=== PATIENT | male | born 2000 | race Caucasian/White ===

== ENCOUNTER 2024-04-30 07:22 | Inpatient (IN) | payer BC, MEDICAID ==
[~2024-04-30] VITALS: Ht 172.7 cm; Wt 79.2 kg
--- NOTE | 2024-04-30 08:02 | ED.PDOC ---
GI ASSESSMENT HPI Comments 24 year old male presents to the ED with chief complaint of abdominal pain. Patient reports that he has been experiencing LUQ abdominal pain with associated nausea and vomiting for a week. Patient relays that he has noticed his stools have been yellow lately. Patient states he went to and was advised to come to the ED due to concern for pancreatitis or cholecystitis. Patient notes that he has an appointment with his PCP in 2 weeks. Patient reports that he has more pain with walking and after eating fatty foods, noticed less pain when on a no fat diet. Patient denies any diarrhea, chest pain, fever, chills, dysuria, or hematemesis. Chief Complaint: Abdominal Pain Time Seen by MD: 07:57 Primary Care Provider: NONE Reviewed Notes: Nurses Notes, Medications, Allergies Allergies: Coded Allergies: NO KNOWN ALLERGIES (Unverified , 04/30/24) Information Source: Patient Mode of Arrival: Ambulatory Timing: Weeks Duration: Since onset Prehospital treatment: None Quality: Sharp Vomitus: Watery Stool: Normal, Yellow Severity: Moderate Recent: None Recent Hx of: None Pain Location: LUQ Modifying Factors: Nothing Associated sign and symptoms: Nausea, Vomiting, Abdominal Pain Past Medical History PAST MEDICAL HISTORY: Denies Surgical History: Denies all surgeries Family History Family History: Reviewed,noncontributory to illness Social History Smoker: Non-Smoker Alcohol: Occasionally Drugs: Denies Drug Use Lives In: Home Constitutional: denies: chills, diaphoresis, fatigue, fever, malaise, sweats, weakness, others EENTM: denies: blurred vision, double vision, ear bleeding, ear discharge, ear drainage, ear pain, ear ringing, eye pain, eye redness, hearing loss, mouth pain, mouth swelling, nasal discharge, nose bleeding, nose congestion, nose pain, photophobia, tearing, throat pain, throat swelling, voice changes, others Respiratory: denies: cough, hemoptysis, orthopnea, SOB at rest, shortness of breath, SOB with excertion, stridor, wheezing, others Cardiovascular: denies: chest pain, dizzy spells, diaphoresis, Dyspnea on exertion, edema, irregular heart beat, left arm pain, lightheadedness, palpitations, PND, syncope, others Gastrointestinal: reports: abdominal pain, nausea, vomiting; denies: abdomen distended, blood streaked bowels, constipated, diarrhea, dysphagia, difficulty swallowing, hematemesis, melena, poor appetite, poor fluid intake, rectal bleeding, rectal pain, others Genitourinary: denies: burning, dysuria, flank pain, frequency, hematuria, incontinence, penile discharge, penile sore, pain, testicle pain, testicle swelling, urgency, others Neurological: denies: dizziness, fainting, headache, left sided numbness, left sided weakness, numbness, paresthesia, pre-existing deficit, right sided numbness, right sided weakness, seizure, speech problems, tingling, tremors, weakness, others Musculoskeletal: denies: back pain, gout, joint pain, joint swelling, muscle pain, muscle stiffness, neck pain, others Integumetry: denies: bruises, change in color, change in hair/nails, dryness, laceration, lesions, lumps, rash, wounds, others Allergic/Immunocompromised: denies: Difficulty Healing, Frequent Infections, Hi ves, Itching, others Hematologic/Lymphatic: denies: anemia, blood clots, easy bleeding, easy bruising, swollen glands, others Endocrine: denies: excessive hunger, excessive sweating, excessive thirst, excessive urination, flushing, intolerance to cold, intolerance to heat, unexplained weight gain, unexplained weight loss, others Psychiatric: denies: anxiety, bipolar disorder, depression, hopeless, panic disorder, schizophrenia, sleepless, suicidal, others All Other Systems: Reviewed and Negative Physical Exam General Appearance: Moderate Distress, Normal HEENT: Normal ENT Inspection, PERRL/EOMI Neck: Full Range of Motion, Non-Tender, Normal, Normal Inspection Respiratory: Chest Non-Tender, Lungs Clear, No Accessory Muscle Use, No Respiratory Distress, Normal Breath Sounds Cardiovascular: No Edema, No JVD, No Murmur, No Gallop, Normal Peripheral Pulses, Regular Rate/Rhythm Breast Exam: Deferred Gastrointestinal: Diffuse, No Organomegaly, No Pulsatile Mass, Normal Bowel Sounds, Soft Genitalia: Deferred Pelvic: Deferred Rectal: Deferred Extremities: No calf tenderness, Normal capillary refill, Normal inspection, Normal range of motion, Non-tender, No pedal edema Musculoskeletal : Apperance: Normal Neurologic: Alert, produce team lead II-XII nml as Tested, No Motor Deficits, Normal Affect, Normal Mood, No Sensory Deficits Cerebellar Function: Normal Reflexes: Normal Skin: Dry, Normal Color, Warm Peripheral Pulses: 3+ Radial (R), 3+ Radial (L) Lymphatic: No Adenopathy Was a procedure done? Was a procedure done?: No GI differential Dx Differential Diagnosis: Constipation, Diverticular disease, Esophagitis, Gastritis/PUD, Gastroenteritis X-Ray, Labs, Meds, VS Vital Signs Date Time Temp Pulse Resp B/P (MAP) Pulse Ox O2 Delivery O2 Flow Rate FiO2 04/30/24 12:15 98.1 97 17 135/77 (96) 99 98.1 04/30/24 11:23 83 18 130/81 (97) 97 04/30/24 10:34 Room Air* 0 21 04/30/24 07:40 99.1 77 20 146/97 (113) 97 Lab Test 04/30/24 10:15 04/30/24 10:14 Range/Units Urine Color Light-yellow Yellow Urine Clarity Clear Clear Urine pH 8.0 5.0-9.0 Urine Specific [place] 1.035 1.001-1.035 Urine Protein Negative Negative Urine Ketones Negative Negative Urine Blood Negative Negative /uL Urine Nitrite Negative Negative Urine Bilirubin Negative Negative Urine Urobilinogen Normal Negative mg/dL Urine Leukocyte Esterase Negative Negative /uL Urine RBC <1 0 - 3 /hpf Urine WBC None seen 0 - 3 /hpf Urine Squamous Epithelial Cells Few <5 /hpf Urine Bacteria None seen None Seen /hpf Urine Mucus Few None Seen Urine Glucose Normal Normal mg/dL White Blood Count 6.5 4.4-10.8 10^3/uL Red Blood Count 5.57 4.5-5.90 10^6/uL Hemoglobin 17.0 13.5-17.5 g/dL Hematocrit 49.9 41.0-53.0 % Mean Corpuscular Volume 89.6 80.0-100.0 fL Mean Corpuscular Hemoglobin 30.5 28.0-32.0 pg Mean Corpuscular Hemoglobin Concent 34.1 32.0-36.0 g/dL Red Cell Distribution Width 12.8 11.8-14.3 % Platelet Count 299 140-450 10^3/uL Mean Platelet Volume 8.4 6.9-10.8 fL Neutrophils (%) (Auto) 65.3 37.0-80.0 % Lymphocytes (%) (Auto) 26.4 10.0-50.0 % Monocytes (%) (Auto) 6.9 0.0-12.0 % Eosinophils (%) (Auto) 0.9 0.0-7.0 % Basophils (%) (Auto) 0.5 0.0-2.0 % Neutrophils # (Auto) 4.2 1.6-8.6 10 ^3/uL Lymphocytes # (Auto) 1.7 0.4-5.4 10 ^3/uL Monocytes # (Auto) 0.4 0-1.3 10 ^3/uL Eosinophils # (Auto) 0.1 0-0.8 10 ^3/uL Basophils # (Auto) 0 0-0.2 10 ^3/uL Nucleated Red Blood Cells 0.1 % Sodium Level 141 136-145 mmol/L Potassium Level 4.4 3.5-5.1 mmol/L Chloride Level 107 98-107 mmol/L Carbon Dioxide Level 28 20-31 mmol/L Anion Gap 6 5-15 Blood Urea Nitrogen 17 9-23 mg/dL Creatinine 0.86 0.700-1.30 mg/dL Glomerular Filtration Rate Calc 122 >90 mL/min BUN/Creatinine Ratio 19.8 10.0-20.0 Serum Glucose 91 74-106 mg/dL Calcium Level 10.7 H 8.7-10.4 mg/dL Total Bilirubin 0.8 0.2-1.0 mg/dL Aspartate Amino Transferase (AST) 22 13-40 U/L Alanine Aminotransferase (ALT) 42 H 7-40 U/L Alkaline Phosphatase 127 H 46-116 U/L Total Protein 8.0 5.7-8.2 g/dL Albumin 4.8 3.2-4.8 g/dL Lipase 41 12-53 U/L Current Medications Medications (Trade) Dose Ordered Sig/Gabo Route Start Time Stop Time Status Last Admin Sodium Chloride 1,000 ml @ 1,000 mls/hr Q1H ONCE IV 04/30/24 10:00 04/30/24 10:59 DC 04/30/24 10:32 Patient alert. Complaining of abdominal pain. Vitals stable. Ambulating. Abdomen is diffusely tender. Possible gallstone pancreatitis. Establish intravenous access. Was given fluids. Was given Zofran. Was given morphine. Explained to the patient. Gallbladder US: FINDINGS: The liver demonstrates homogenous echotexture without focal mass lesions. The liver measures 12.5 cm in length. There is hepatopedal color doppler flow in the main portal vein. There is no intrahepatic biliary ductal dilatation. Hepatopetal flow in the main portal vein. The gallbladder is without evidence of stone or sludge. The gallbladder wall measures 0.1 cm. The common bile duct measures 0.5 cm. There is a negative sonographic Addison's sign. The right kidney measures 11.1 cm. The right kidney is normal in contour, size, and shape. The echogenicity is normal. There is no hydronephrosis. The pancreas is not well visualized due to overlying bowel gas. Visualized portions of the aorta and inferior vena cava are unremarkable. No evidence of ascites. IMPRESSION: 1. Normal right upper quadrant ultrasound. CT Abd/Pel W/ IV Con: FINDINGS: The pancreas appears within normal limits without evidence of a discrete lesion or cysts. There is no peripancreatic fat stranding fluid collection. Theliver, gallbladder, kidneys, adrenal glands, and spleen appear within normal limits. There is no evidence of abdominal lymphadenopathy. There is no free fluid or free air. The stomach grossly appears unremarkable. The small and large bowel loops demonstrate normal caliber and appear within normal limits.. The abdominal aorta and IVC appear within normal limits. The bladder appears within normal limits the degree of distention. Pelvic organs is unremarkable. There is no evidence of a pelvic mass or lymphadenopathy. There is no free fluid collection. Lung bases are clear. There is no acute osseous abnormality. IMPRESSION: 1. There is no acute process in the abdomen and pelvis.. Images Reviewed?: Images reviewed and evaluated by me Time of 1ST Reevaluation: 08:57 Reevaluation 1ST: Unchanged Patient Education/Counseling: Diagnosis, Treatment Family Education/Counseling: No Family Present Additional Information I reviewed the following notes from patient's past medical encounters: None The following tests were ordered, and results were reviewed by me: CT Abd/Pel w/ IV Con, Gallbladder US, CBC, CMP, UA Additional Information was gathered from interviewing the following independent historians: None I reviewed and agreed with the following test results read by other providers: CT Abd/Pel w/ IV Con, Gallbladder US I discussed treatment and results with medical personnel. Departure 1 Departure Time of Disposition: 09:46 Impression: Primary Impression: Acute abdominal pain Disposition: 09 ADMITTED INPATIENT Admit to: Med Surg Condition: Guarded Critical Care Note Critical Care Time?: No Stability Stability form required: No Heart Score Heart Score: Heart Score Response (Comments) Value History N/A 0 EKG N/A 0 Age N/A 0 Risk Factors N/A 0 Troponin N/A 0 Total 0 I personally scribed for CORA DSOUZA MD ([email or web address]) on 04/30/24 at 08:02. Electronically submitted by Melquiades Ruby ([email or web address]). I personally scribed for CORA DSOUZA MD ([email or web address]) on 04/30/24 at 11:41. Electronically submitted by Melquiades Ruby ([email or web address]). I personally scribed for CORA DSOUZA MD ([email or web address]) on 04/30/24 at 14:38. Electronically submitted by Melquiades Ruby ([email or web address]). CORA DSOUZA MD Apr 30, 2024 08:02
--- NOTE | 2024-04-30 10:14 | DVH ---
EXAM: US GALLBLADDER INDICATION: gallstonepancreas TECHNIQUE: Multiple real-time sonographic images were obtained of the right upper quadrant. COMPARISON: None FINDINGS: The liver demonstrates homogenous echotexture without focal mass lesions. The liver measure s 12.5 cm in length. There is hepatopedal color doppler flow in the main portal vein. There is no in trahepatic biliary ductal dilatation. Hepatopetal flow in the main portal vein. The gallbladder is without evidence of stone or sludge. The gallbladder wall measures 0.1 cm. The common bile duct measures 0.5 cm. There is a negative sonographic Addison's sign. The right kidney measures 11.1 cm. The right kidney is normal in contour, size, and shape. The ech ogenicity is normal. There is no hydronephrosis. The pancreas is not well visualized due to overlying bowel gas. Visualized portions of the aorta and inferior vena cava are unremarkable. No evidence of ascites. IMPRESSION: 1. Normal right upper quadrant ultrasound.
[2024-04-30] MEDS: MORPHINE SULFATE 4 MG/ML SYR/VIAL IV ONE (10:27)
[2024-04-30 10:30] LABS: Basophils # (auto) 0 10 ^3/uL (0-0.2); Basophils % (auto) 0.5 % (0.0-2.0); Eosinophils # (auto) 0.1 10 ^3/uL (0-0.8); Eosinophils % (auto) 0.9 % (0.0-7.0); Hematocrit 49.9 % (41.0-53.0); Lymphocytes # (auto) 1.7 10 ^3/uL (0.4-5.4); Lymphocytes % (auto) 26.4 % (10.0-50.0); Mean Corpuscular Hemoglobin 30.5 pg (28.0-32.0); Mean Corpuscular Hgb Conc. 34.1 g/dL (32.0-36.0); Mean Corpuscular Volume 89.6 fL (80.0-100.0); Monocytes # (auto) 0.4 10 ^3/uL (0-1.3); Monocytes % (auto) 6.9 % (0.0-12.0); Neutrophils # (auto) 4.2 10 ^3/uL (1.6-8.6); Neutrophils % (auto) 65.3 % (37.0-80.0); Nucleated Red Blood Cells % 0.1 %; Platelet Count (auto) 299 10^3/uL (140-450); Red Blood Cells 5.57 10^6/uL (4.5-5.90); Red Cell Distribution Width 12.8 % (11.8-14.3); White Blood Cell 6.5 10^3/uL (4.4-10.8)
[2024-04-30] MEDS: SODIUM CHLORIDE 0.9% 1,000 ML IV ONE (10:32)
[2024-04-30] MEDS: ONDANSETRON HCL 4 MG/2 ML VIAL IV ONE (10:32)
[2024-04-30 11:50] LABS: Albumin 4.8 g/dL (3.2-4.8); Anion Gap 6 (5-15); Aspartate Aminotransferase 22 U/L (13-40); BUN/Creatinine Ratio 19.8 (10.0-20.0); Bilirubin, Total 0.8 mg/dL (0.2-1.0); Blood Urea Nitrogen 17 mg/dL (9-23); Carbon Dioxide 28 mmol/L (20-31); Chloride 107 mmol/L (98-107); Glucose 91 mg/dL (74-106); Lipase 41 U/L (12-53); Potassium 4.4 mmol/L (3.5-5.1); Sodium 141 mmol/L (136-145)
[2024-04-30 11:55] LABS: Alanine Aminotransferase 42 U/L (7-40); Alkaline Phosphatase 127 U/L (46-116); Calcium 10.7 mg/dL (8.7-10.4)
[2024-04-30] MEDS: IOHEXOL 300 MG/ML 100ML BOTTLE IJ ONE (12:29)
--- NOTE | 2024-04-30 12:46 | DVH ---
Exam: CT CT AB PEL WITH IV CON ONLY History: pancreas TECHNIQUE: A digital hospital nurse liaison image was obtained. During the uneventful, intravenous administration of c ontrast material, multislice data acquisition was obtained through the abdomen and pelvis. The data s et was subsequently reconstructed into axial images. Images were reviewed on a work station using a c ombination of axial and multiplanar using a variety of window levels and settings. 100 cc of Omnipaqu e 300 contrast was injected intravenously. All CT scans at this medical facility are performed using dose modulation techniques as appropriate t o a performed exam including the following:Automated exposure control was utilized; adjustment of the MA and/or KV according to patient size; and use of iterative reconstruction technique. Radiation Dose Information: CT Dose: CTDI volume is 12.98 mGy. Dose-length product is 718.59 mGy*cm Comparison: None FINDINGS: The pancreas appears within normal limits without evidence of a discrete lesion or cysts. There is n o peripancreatic fat stranding fluid collection. Theliver, gallbladder, kidneys, adrenal glands, and spleen appear within normal limits. There is no evidence of abdominal lymphadenopathy. There is no free fluid or free air. The stomach grossly appears unremarkable. The small and large bowel loops demonstrate normal caliber and appear within normal limits.. The abdominal aorta and IVC appear within normal limits. The bladder appears within normal limits the degree of distention. Pelvic organs is unremarkable. Th ere is no evidence of a pelvic mass or lymphadenopathy. There is no free fluid collection. Lung bases are clear. There is no acute osseous abnormality. IMPRESSION: 1. There is no acute process in the abdomen and pelvis.. HS:Y
[2024-04-30 13:14] LABS: Urine Bacteria None Seen /hpf (None Seen); Urine WBC None Seen /hpf (0 - 3)
[2024-04-30 13:25] LABS: Urine Blood Negative /uL (Negative); Urine Clarity Clear (Clear); Urine Color Light-Yellow (Yellow); Urine Mucus FEW (None Seen); Urine Protein, UAD Negative (Negative); Urine Squamous Epithelial Cell FEW /hpf (<5); Urine Urobilinogen Normal (Negative)
[2024-04-30 13:26] LABS: Urine Specific Gravity 1.035 (1.001-1.035)
[2024-04-30] MEDS ORDERED: ACETAMINOPHEN 325 MG TAB PO PRN (14:45)
[2024-04-30] MEDS ORDERED: MORPHINE SULFATE INJ 2 MG/ml SYRG IV PRN (14:45)
[2024-04-30] MEDS ORDERED: HYDROcodone-ACET 5/325MG TAB PO PRN (14:45)
--- NOTE | 2024-04-30 15:01 | DVHHP2 ---
History of Present Illness Reason for Visit: Abdominal pain History of Present Illness Justice Newman is a 24-year-old male with past medical history of asthma and insomnia who presents to the ED with abdominal pain, nausea, vomiting, in yellow stool x3 days. Patient states that the pain is worse when eating fatty foods not eating dishes such as rice or clear liquids. Patient denies any chest pain, shortness of breath, diarrhea, lightheadedness, fever, chills, dizziness, and headaches. Pulmonary: Asthma Past Medical History Insomnia Past Surgical History: None Family History: DM, Other (Mom and dad with diabetes) Smoke: No ALCOHOL: none Lives: with Family Domestic Violence: Neg Review of Systems Constitutional: No: Fever, Chills, Sweats, Weakness, Malaise, Other Eyes: No: Pain, Vision change, Conjunctivae inflammation, Eyelid inflammation, Other, Redness ENT: No: Ear pain, Ear discharge, Nose pain, Nose discharge, Nose congestion, Mouth pain, Mouth swelling, Throat pain, Throat swelling, Other Respiratory: No: Cough, Dry, Shortness of breath, SOB with excertion, Wheezing, Hemoptysis, Pleuritic Pain, Sputum, Wheezing, Other Cardiovascular: No: Chest Pain, Palpitations, Orthopnea, Paroxysmal Noc. Dyspnea, Edema, Lt Headedness, Other Gastrointestinal: Nausea, Vomiting, Abdominal Pain; No: Diarrhea, Constipation, Melena, Hematochezia, Other Genitourinary: No Dysuria, No Frequency, No Incontinence, No Hematuria, No Retention, No Other Musculoskeletal: No: other, neck pain, shoulder pain, arm pain, back pain, hand pain, leg pain, foot pain Skin: No: Rash, Lesions, Jaundice, Bruising, Other Neurological: No: Weakness, Numbness, Incoordination, Change in speech, Confusion, Seizures, Other Allergies: Coded Allergies: NO KNOWN ALLERGIES (Unverified , 04/30/24) Exam Vital Signs Vital Signs Date Time Temp Pulse Resp B/P (MAP) Pulse Ox O2 Delivery O2 Flow Rate FiO2 04/30/24 12:15 98.1 97 17 135/77 (96) 99 98.1 04/30/24 10:34 Room Air* 0 21 General Appearance: Alert, Oriented X3, Cooperative, No acute distress HEENT: Atraumatic, PERRLA, EOMI, Mucous membr. moist/pink Respiratory: Clear to auscultation, Normal air movement Cardiovascular: Regular rate, Normal S1, Normal S2, No murmurs Abdominal: Normal bowel sounds, Soft, No hepatospenomegaly, No masses Extremities: No clubbing, No cyanosis, No edema, Normal pulses, No tenderness/swelling Skin: No rashes, No breakdown, No significant lesion Neuro: Normal gait, Normal speech, Strength at 5/5 X4 ext, Normal tone, Sensation intact Psych/Mental Status: Mental status NL, Mood NL Labs/Xrays Labs Test 04/30/24 10:15 04/30/24 10:14 Range/Units Urine Color Light-yellow Yellow Urine Clarity Clear Clear Urine pH 8.0 5.0-9.0 Urine Specific [place] 1.035 1.001-1.035 Urine Protein Negative Negative Urine Ketones Negative Negative Urine Blood Negative Negative /uL Urine Nitrite Negative Negative Urine Bilirubin Negative Negative Urine Urobilinogen Normal Negative mg/dL Urine Leukocyte Esterase Negative Negative /uL Urine RBC <1 0 - 3 /hpf Urine WBC None seen 0 - 3 /hpf Urine Squamous Epithelial Cells Few <5 /hpf Urine Bacteria None seen None Seen /hpf Urine Mucus Few None Seen Urine Glucose Normal Normal mg/dL White Blood Count 6.5 4.4-10.8 10^3/uL Red Blood Count 5.57 4.5-5.90 10^6/uL Hemoglobin 17.0 13.5-17.5 g/dL Hematocrit 49.9 41.0-53.0 % Mean Corpuscular Volume 89.6 80.0-100.0 fL Mean Corpuscular Hemoglobin 30.5 28.0-32.0 pg Mean Corpuscular Hemoglobin Concent 34.1 32.0-36.0 g/dL Red Cell Distribution Width 12.8 11.8-14.3 % Platelet Count 299 140-450 10^3/uL Mean Platelet Volume 8.4 6.9-10.8 fL Neutrophils (%) (Auto) 65.3 37.0-80.0 % Lymphocytes (%) (Auto) 26.4 10.0-50.0 % Monocytes (%) (Auto) 6.9 0.0-12.0 % Eosinophils (%) (Auto) 0.9 0.0-7.0 % Basophils (%) (Auto) 0.5 0.0-2.0 % Neutrophils # (Auto) 4.2 1.6-8.6 10 ^3/uL Lymphocytes # (Auto) 1.7 0.4-5.4 10 ^3/uL Monocytes # (Auto) 0.4 0-1.3 10 ^3/uL Eosinophils # (Auto) 0.1 0-0.8 10 ^3/uL Basophils # (Auto) 0 0-0.2 10 ^3/uL Nucleated Red Blood Cells 0.1 % Sodium Level 141 136-145 mmol/L Potassium Level 4.4 3.5-5.1 mmol/L Chloride Level 107 98-107 mmol/L Carbon Dioxide Level 28 20-31 mmol/L Anion Gap 6 5-15 Blood Urea Nitrogen 17 9-23 mg/dL Creatinine 0.86 0.700-1.30 mg/dL Glomerular Filtration Rate Calc 122 >90 mL/min BUN/Creatinine Ratio 19.8 10.0-20.0 Serum Glucose 91 74-106 mg/dL Calcium Level 10.7 H 8.7-10.4 mg/dL Total Bilirubin 0.8 0.2-1.0 mg/dL Aspartate Amino Transferase (AST) 22 13-40 U/L Alanine Aminotransferase (ALT) 42 H 7-40 U/L Alkaline Phosphatase 127 H 46-116 U/L Total Protein 8.0 5.7-8.2 g/dL Albumin 4.8 3.2-4.8 g/dL Lipase 41 12-53 U/L EXAM: US GALLBLADDER INDICATION: gallstonepancreas TECHNIQUE: Multiple real-time sonographic images were obtained of the right upper quadrant. COMPARISON: None FINDINGS: The liver demonstrates homogenous echotexture without focal mass lesions. The liver measures 12.5 cm in length. There is hepatopedal color doppler flow in the main portal vein. There is no intrahepatic biliary ductal dilatation. Hepatopetal flow in the main portal vein. The gallbladder is without evidence of stone or sludge. The gallbladder wall measures 0.1 cm. The common bile duct measures 0.5 cm. There is a negative sonographic Addison's sign. The right kidney measures 11.1 cm. The right kidney is normal in contour, size, and shape. The echogenicity is normal. There is no hydronephrosis. The pancreas is not well visualized due to overlying bowel gas. Visualized portions of the aorta and inferior vena cava are unremarkable. No evidence of ascites. IMPRESSION: 1. Normal right upper quadrant ultrasound. Exam: CT CT AB PEL WITH IV CON ONLY History: pancreas TECHNIQUE: A digital paid search specialist image was obtained. During the uneventful, intravenous administration of contrast material, multislice data acquisition was obtained through the abdomen and pelvis. The data set was subsequently reconstructed into axial images. Images were reviewed on a work station using a combination of axial and multiplanar using a variety of window levels and settings. 100 cc of Omnipaque 300 contrast was injected intravenously. All CT scans at this medical facility are performed using dose modulation techniques as appropriate to a performed exam including the following:Automated exposure control was utilized; adjustment of the MA and/or KV according to patient size; and use of iterative reconstruction technique. Radiation Dose Information: CT Dose: CTDI volume is 12.98 mGy. Dose-length product is 718.59 mGy*cm Comparison: None FINDINGS: The pancreas appears within normal limits without evidence of a discrete lesion or cysts. There is no peripancreatic fat stranding fluid collection. Theliver, gallbladder, kidneys, adrenal glands, and spleen appear within normal limits. There is no evidence of abdominal lymphadenopathy. There is no free fluid or free air. The stomach grossly appears unremarkable. The small and large bowel loops demonstrate normal caliber and appear within normal limits.. The abdominal aorta and IVC appear within normal limits. The bladder appears within normal limits the degree of distention. Pelvic organs is unremarkable. There is no evidence of a pelvic mass or lymphadenopathy. There is no free fluid collection. Lung bases are clear. There is no acute osseous abnormality. IMPRESSION: 1. There is no acute process in the abdomen and pelvis.. Assessment/Plan Assessment/Plan Assessment/Plan: Intractable abdominal pain likely gastroenteritis Elevated ALT Elevated ALP UA Pain management Antiemetics NS given ED CT abdomen and pelvis Ultrasound gallbladder noted Lipase Lipid panel Labs A.m. labs IV antibiotics Chronic asthma Continue home medications Respiratory treatments p.r.n. budesonide History of insomnia Continue home medication FEN/PPX diet IVf DVT prophylaxis not indicated patient ambulating PUD prophylaxis - protonix Admit to med surg Home medications reconciled Discussed plan of care with patient and nurse Plan discussed with: Patient My Orders Orders - VANI DUPONT Procedure Category Date Status Time Admit ADMIT 04/30/24 Verified 14:36 Allergies JAYLEN 04/30/24 Verified 14:36 Code Status CODE 04/30/24 Verified 14:36 0.9% Ns 1000 Ml PHA 04/30/24 Verified 14:45 Hydrocodone-Acet PHA 04/30/24 Verified 5/325mg Tab ([place] 14:45 Ondansetron Hcl PHA 04/30/24 Verified (Zofran) 14:45 Complete Blood Count LAB 05/01/24 Verified 04:00 Comprehensive LAB 05/01/24 Verified Metabolic Panel 04:00 Cardiac DIET 04/30/24 Verified Diet-2gna,Lofat,Lochol Dinner Acetaminophen Tablet PHA 04/30/24 Verified (Tylenol Tablet) 14:45 Morphine Sulfate PHA 04/30/24 Verified Injection 14:45 Date of Service: Apr 30, 2024 Billing Provider: VANI DUPONT Common Visit Codes: [id number] INP/OBS CARE (HIGH) VANI DUPONT Apr 30, 2024 15:01
[2024-04-30] MEDS ORDERED: TRAZ-227 PO (15:02)
[2024-04-30] MEDS ORDERED: MONT-8 PO (15:02)
[2024-04-30] MEDS ORDERED: IPRATROPIUM BROM 0.5 MG/2.5ML INH SOL NEB PRN (15:15)
[2024-04-30] MEDS ORDERED: ALBUTEROL SULF 2.5 MG/0.5ML(0.5%) NEB SOLN NEB PRN (15:15)
[2024-04-30] MEDS: SODIUM CHLORIDE 0.9% 1,000 ML IV SCH (15:26)
[2024-04-30 15:40] VITALS: BP 119/69; PULSE 76; RESP 16; TEMP 98.6; O2SAT 97
[2024-04-30 16:47] VITALS: BP 119/69; PULSE 76; RESP 16; TEMP 98.6; O2SAT 97
[2024-04-30] MEDS: ONDANSETRON HCL 4 MG/2 ML VIAL IV PRN (18:29)
[2024-04-30 21:10] VITALS: BP 122/76; PULSE 74; RESP 19; TEMP 98.4; O2SAT 95
[2024-04-30 22:40] VITALS: O2SAT 98
[2024-04-30] MEDS: BUDESONIDE (INHALATION) 0.5 MG/2 ML NEB NEB SCH (22:40)
[2024-04-30] MEDS: traZODone HCL 50 MG TAB PO ONE (22:57)
[2024-05-01] VITALS (10 sets, daily range): BP systolic 107–126; BP diastolic 56–85; PULSE 63–100; RESP 17–18; TEMP 97.8–98.5; O2SAT 97–100
[2024-05-01 07:39] LABS: Basophils # (auto) 0 10 ^3/uL (0-0.2); Basophils % (auto) 0.5 % (0.0-2.0); Eosinophils # (auto) 0.1 10 ^3/uL (0-0.8); Eosinophils % (auto) 2.6 % (0.0-7.0); Hematocrit 44.9 % (41.0-53.0); Hemoglobin 15.4 g/dL (13.5-17.5); Lymphocytes # (auto) 1.9 10 ^3/uL (0.4-5.4); Mean Corpuscular Hemoglobin 30.6 pg (28.0-32.0); Mean Corpuscular Hgb Conc. 34.3 g/dL (32.0-36.0); Mean Corpuscular Volume 89.2 fL (80.0-100.0); Monocytes # (auto) 0.5 10 ^3/uL (0-1.3); Monocytes % (auto) 9.5 % (0.0-12.0); Neutrophils # (auto) 2.5 10 ^3/uL (1.6-8.6); Neutrophils % (auto) 50.4 % (37.0-80.0); Nucleated Red Blood Cells % 0.2 %; Platelet Count (auto) 258 10^3/uL (140-450); Red Blood Cells 5.03 10^6/uL (4.5-5.90); Red Cell Distribution Width 13.1 % (11.8-14.3)
[2024-05-01 07:52] LABS: Alanine Aminotransferase 31 U/L (7-40); Albumin 4.2 g/dL (3.2-4.8); Alkaline Phosphatase 110 U/L (46-116); Anion Gap 6 (5-15); Aspartate Aminotransferase 16 U/L (13-40); Blood Urea Nitrogen 13 mg/dL (9-23); Calcium 9.9 mg/dL (8.7-10.4); Carbon Dioxide 27 mmol/L (20-31); Glucose 79 mg/dL (74-106); Potassium 3.8 mmol/L (3.5-5.1); Sodium 141 mmol/L (136-145); Total Protein 6.9 g/dL (5.7-8.2)
[2024-05-01 07:57] LABS: Bilirubin, Total 1.6 mg/dL (0.2-1.0); Chloride 108 mmol/L (98-107)
[2024-05-01] MEDS ORDERED: PANTOPRAZOLE 40 MG/10 ML VIAL INJ IV SCH (10:00)
--- NOTE | 2024-05-01 11:03 | DVHPN2 ---
Subjective Patient continues to report having intermittent nausea and vomiting. Epigastric and left upper quadrant pain. Reviewed: Care Plan, H&P, Labs, Medications Changes from previous H/P or p: No Changes General: Per HPI Eyes: No Pain, No Vision change, No Conjunctivae inflammation, No Eyelid inflammation, No Other, No Redness ENT: No Ear pain, No Ear discharge, No Nose pain, No Nose discharge, No Nose congestion, No Mouth pain, No Mouth swelling, No Throat pain, No Throat swelling, No Other Cardiovascular: No Chest Pain, No Palpitations, No Orthopnea, No Paroxysmal Noc. Dyspnea, No Edema, No Lt Headedness, No Other Respiratory: No Cough, No Dry, No Shortness of breath, No SOB with excertion, No Wheezing, No Hemoptysis, No Pleuritic Pain, No Sputum, No Other Gastrointestinal: Nausea, Vomiting, Abdominal Pain; No Diarrhea, No Constipation, No Melena, No Hematochezia, No Other Genitourinary: No Dysuria, No Frequency, No Incontinence, No Hematuria, No Retention, No Other Musculoskeletal: No other, No neck pain, No shoulder pain, No arm pain, No back pain, No hand pain, No leg pain, No foot pain Skin: No Rash, No Lesions, No Jaundice, No Bruising, No Other Objective Vitals Vital Signs Date Time Temp Pulse Resp B/P (MAP) Pulse Ox O2 Delivery O2 Flow Rate FiO2 05/01/24 09:15 98.2 76 17 121/73 (89) 100 98.2 05/01/24 06:24 Room Air 0.0 05/01/24 06:24 21 Intake/Output Intake and Output 05/01/24 07:00 Intake Total 240 ml Balance 240 ml Intake Oral 240 ml # Voids 2 General Appearance: Alert, Oriented X3, Cooperative HEENT: Atraumatic, PERRLA Cardiovascular: Normal S1, Normal S2 Abdomen: Normal bowel sounds, Soft, No tenderness Musculoskeletal: Normal sensory function, Normal motor function Neuro: Normal gait, Normal speech Psych/Mental Status: Mental status NL, Mood NL Medications Current Medications Medications Dose Ordered Sig/Gabo Route Start Time Stop Time Status Last Admin Dose Admin Sodium Chloride 1,000 ml @ 70 mls/hr [id number] IV 04/30/24 14:45 04/30/24 15:26 70 MLS/HR Acetaminophen/ Hydrocodone Bitart 1 tab Q4HP PRN PO 04/30/24 14:45 Ondansetron HCl 4 mg Q4HP PRN IV 04/30/24 14:45 05/01/24 05:18 4 MG Acetaminophen 650 mg Q6HP PRN PO 04/30/24 14:45 Morphine Sulfate 2 mg Q4HPRN PRN IV 04/30/24 14:45 Pantoprazole Sodium 40 mg DAILY IV 05/01/24 10:00 Albuterol 2.5 mg Q4HPRN PRN NEB 04/30/24 15:15 Ipratropium [place] 0.5 mg Q4HPRN PRN NEB 04/30/24 15:15 Budesonide 0.5 mg BID NEB 04/30/24 22:00 05/01/24 06:24 0.5 MG Laboratory Results Laboratory Tests 05/01/24 06:39 Chemistry Test 05/01/24 06:39 Albumin 4.2 g/dL (3.2-4.8) Calcium Level 9.9 mg/dL (8.7-10.4) Total Protein 6.9 g/dL (5.7-8.2) Lipid panel Test 04/30/24 17:05 Lipase 38 U/L (12-53) LFT Test 05/01/24 06:39 Alanine Aminotransferase (ALT) 31 U/L (7-40) Alkaline Phosphatase 110 U/L (46-116) Aspartate Amino Transferase (AST) 16 U/L (13-40) Total Bilirubin 1.6 mg/dL (0.2-1.0) H Urinalysis Test 04/30/24 10:15 Urine Color Light-yellow (Yellow) Urine Clarity Clear (Clear) Urine pH 8.0 (5.0-9.0) Urine Specific [place] 1.035 (1.001-1.035) Urine Protein Negative (Negative) Urine Ketones Negative (Negative) Urine Blood Negative /uL (Negative) Urine Nitrite Negative (Negative) Urine Bilirubin Negative (Negative) Urine Urobilinogen Normal mg/dL (Negative) Urine Leukocyte Esterase Negative /uL (Negative) Urine RBC <1 /hpf (0 - 3) Urine WBC None seen /hpf (0 - 3) Urine Squamous Epithelial Cells Few /hpf (<5) Urine Bacteria None seen /hpf (None Seen) Urine Mucus Few (None Seen) Urine Glucose Normal mg/dL (Normal) Labs and/or images reviewed: Labs reviewed by me, Image(s) reviewed by me Assessment/Plan Assessment/Plan Impression: -abdominal pain -intractable nausea and vomiting -rule out acalculous cholecystitis -asthma Plan: -gentle IV hydration -clear liquid diet -GI consultation -HIDA scan with CCK -repeat CMP in a.m. -further course of care per GI recommendations Total time spent with patient discussing and formulating plan of care: 35 minutes. This medical document was created using an electronic medical record system with [employer] dictation system. Although this document has been carefully reviewed, there may still be some phonetic and typographical errors. These areas are purely typographical due to imperfections of the software programs, and do not reflect any compromise in the patient's medical care. Plan discussed with: Patient, Other (Mother) My Orders Orders - RICARDO KAISER NP Procedure Category Date Status Time * Gi Dvh Manager Agency CONS 05/01/24 Transmitted 10:12 Clear Liq Diet DIET 05/01/24 Verified Lunch Sucralfate Susp PHA 05/01/24 Verified (Carafate Susp) 22:00 Pantoprazole Tablet PHA 05/01/24 Verified (Protonix Tablet) 17:00 Stool Bacterial GARETT 05/01/24 Uncollected Culture 10:55 Nm Hida Scan NM 05/01/24 Verified 10:55 Date of Service: May 01, 2024 Billing Provider: RICARDO KAISER NP Common Visit Codes: [id number] INP/OBS CARE(HIGH) RICARDO KAISER NP May 01, 2024 11:03
--- NOTE | 2024-05-01 11:24 | DVHINCON2 ---
GI Consult Consult Note GI consult note Date of Consultation: 05/01/2024 Chief Complaint: RUQ, epigastric pain Referring Physician: Rufino COSBY H&P: 24-year-old male presented to ER with abdominal pain nausea and vomiting Patient admits to left upper quadrant abdominal pain, to on a 0-10 pain scale, on and off for last three weeks, worsened about a week ago. Pain is worse when eating sausage or greasy food. Patient changes diet to a soft bland diet which improved symptoms Patient also has nausea vomiting, was seen in urgent Care one-week ago, treated with Zofran, mostly yellow colored emesis. No hematemesis No fever or chills. No recent travel. Does not have a history of GERD symptoms, but having acid reflux now. Only has alcohol about once every two weeks. 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 Family History: Noncontributory Review of Systems: Constitutional: no fever, chill, weight loss HEENT: no eye pain, no hearing loss, no oral lesion, no scleral icterus Heart: no chest pain, no chest pressure Lung: no cough, no dyspnea with exertion Abdomen: see HPI Physical exam: General: NAD, AAOX3 Chest: lung steen clear to auscultation Heart: RRR, no murmur Abdomen: Mild LUQ tenderness to palpation, +BS Labs: Labs Test 05/01/24 06:39 04/30/24 17:05 04/30/24 10:15 Range/Units White Blood Count 5.0 4.4-10.8 10^3/uL Red Blood Count 5.03 4.5-5.90 10^6/uL Hemoglobin 15.4 13.5-17.5 g/dL Hematocrit 44.9 # 41.0-53.0 % Mean Corpuscular Volume 89.2 80.0-100.0 fL Mean Corpuscular Hemoglobin 30.6 28.0-32.0 pg Mean Corpuscular Hemoglobin Concent 34.3 32.0-36.0 g/dL Red Cell Distribution Width 13.1 11.8-14.3 % Platelet Count 258 140-450 10^3/uL Mean Platelet Volume 8.7 6.9-10.8 fL Neutrophils (%) (Auto) 50.4 37.0-80.0 % Lymphocytes (%) (Auto) 37.0 10.0-50.0 % Monocytes (%) (Auto) 9.5 0.0-12.0 % Eosinophils (%) (Auto) 2.6 0.0-7.0 % Basophils (%) (Auto) 0.5 0.0-2.0 % Neutrophils # (Auto) 2.5 1.6-8.6 10 ^3/uL Lymphocytes # (Auto) 1.9 0.4-5.4 10 ^3/uL Monocytes # (Auto) 0.5 0-1.3 10 ^3/uL Eosinophils # (Auto) 0.1 0-0.8 10 ^3/uL Basophils # (Auto) 0 0-0.2 10 ^3/uL Nucleated Red Blood Cells 0.2 % Sodium Level 141 136-145 mmol/L Potassium Level 3.8 3.5-5.1 mmol/L Chloride Level 108 H 98-107 mmol/L Carbon Dioxide Level 27 20-31 mmol/L Anion Gap 6 5-15 Blood Urea Nitrogen 13 9-23 mg/dL Creatinine 0.81 0.700-1.30 mg/dL Glomerular Filtration Rate Calc 125 >90 mL/min BUN/Creatinine Ratio 16.0 10.0-20.0 Serum Glucose 79 74-106 mg/dL Calcium Level 9.9 8.7-10.4 mg/dL Total Bilirubin 1.6 H 0.2-1.0 mg/dL Aspartate Amino Transferase (AST) 16 13-40 U/L Alanine Aminotransferase (ALT) 31 7-40 U/L Alkaline Phosphatase 110 46-116 U/L Total Protein 6.9 5.7-8.2 g/dL Albumin 4.2 3.2-4.8 g/dL Lipase 38 12-53 U/L Urine Color Light-yellow Yellow Urine Clarity Clear Clear Urine pH 8.0 5.0-9.0 Urine Specific [place] 1.035 1.001-1.035 Urine Protein Negative Negative Urine Ketones Negative Negative Urine Blood Negative Negative /uL Urine Nitrite Negative Negative Urine Bilirubin Negative Negative Urine Urobilinogen Normal Negative mg/dL Urine Leukocyte Esterase Negative Negative /uL Urine RBC <1 0 - 3 /hpf Urine WBC None seen 0 - 3 /hpf Urine Squamous Epithelial Cells Few <5 /hpf Urine Bacteria None seen None Seen /hpf Urine Mucus Few None Seen Urine Glucose Normal Normal mg/dL Imaging: Abdominal ultrasound IMPRESSION: 1. Normal right upper quadrant ultrasound. CT abdomen pelvis IMPRESSION: 1. There is no acute process in the abdomen and pelvis.. Assessment: Acute abdominal pain Elevated total bili Plan: Discussed with Dr. Miller CBC, CMP, hepatitis panel HIDA scan pending Full liquid diet Discussed plan with patient, family at bedside, and RN We will continue to monitor the patient Thank you for the consult Date of Service: May 01, 2024 Billing Provider: OMAR FORREST Common Visit Codes: CONSULT ONLY Consultation Codes: [id number] CONSULT <45MIN OMAR FORREST May 01, 2024 11:24
--- NOTE | 2024-05-01 14:05 | DVH ---
EXAM: NM NM HIDA SCAN History: Acalculus cholecystits Comparison Study: None available TECHNIQUE: Following intravenous administration of 5.2 mCi of Tc-99m mebrofenin (Choletec), dynamic sequential images of the right upper abdomen were acquired for 60 minutes. An additional planar image in the lateral right upper quadrant was also obtained. After the intravenous slow administration over a period of 10 minutes of 2 micrograms of CCK images w ere acquired for 30 minutes. FINDINGS: The liver demonstrates prompt radiotracer uptake with clearance from blood pool. No focal perfusion d efects were noted. There was prompt excretion of the radiotracer into the biliary tree, without evide nce of biliary dilatation or obstruction. Post-CCK gallbladder ejection fraction is estimated to be 71 % (normal > 35%). IMPRESSION: 1. No evidence for gallbladder dysfunction or acute cholecystitis.
[2024-05-01] MEDS: PANTOPRAZOLE 40 MG TAB PO SCH (16:52)
[2024-05-01] MEDS: traZODone HCL 50 MG TAB PO ONE (21:19)
[2024-05-01] MEDS: SUCRALFATE 1 GM/10 ML ORAL SUSP GT SCH (21:20)
[2024-05-02] VITALS (12 sets, daily range): BP systolic 103–126; BP diastolic 55–79; PULSE 53–108; RESP 16–18; TEMP 97.5–98.6; O2SAT 96–100
[2024-05-02 07:23] LABS: Basophils # (auto) 0 10 ^3/uL (0-0.2); Basophils % (auto) 0.3 % (0.0-2.0); Eosinophils # (auto) 0.2 10 ^3/uL (0-0.8); Eosinophils % (auto) 2.7 % (0.0-7.0); Hematocrit 47.4 % (41.0-53.0); Lymphocytes # (auto) 2.3 10 ^3/uL (0.4-5.4); Lymphocytes % (auto) 34.9 % (10.0-50.0); Mean Corpuscular Hemoglobin 30.9 pg (28.0-32.0); Mean Corpuscular Hgb Conc. 33.8 g/dL (32.0-36.0); Mean Corpuscular Volume 91.3 fL (80.0-100.0); Monocytes # (auto) 0.6 10 ^3/uL (0-1.3); Monocytes % (auto) 9.5 % (0.0-12.0); Neutrophils # (auto) 3.5 10 ^3/uL (1.6-8.6); Neutrophils % (auto) 52.6 % (37.0-80.0); Platelet Count (auto) 277 10^3/uL (140-450); Red Blood Cells 5.19 10^6/uL (4.5-5.90); White Blood Cell 6.6 10^3/uL (4.4-10.8)
[2024-05-02 07:47] LABS: Alanine Aminotransferase 28 U/L (7-40); Albumin 4.3 g/dL (3.2-4.8); Alkaline Phosphatase 112 U/L (46-116); Anion Gap 8 (5-15); Aspartate Aminotransferase 15 U/L (13-40); Blood Urea Nitrogen 13 mg/dL (9-23); Carbon Dioxide 28 mmol/L (20-31); Chloride 105 mmol/L (98-107); Potassium 4.6 mmol/L (3.5-5.1); Sodium 141 mmol/L (136-145)
[2024-05-02 07:48] LABS: Total Protein 7.1 g/dL (5.7-8.2)
[2024-05-02 07:49] LABS: Calcium 10.5 mg/dL (8.7-10.4); Glucose 61 mg/dL (74-106)
[2024-05-02 09:58] LABS: Hepatitis B Core Total AB Negative (Negative)
--- NOTE | 2024-05-02 10:22 | DVHPN2 ---
Progress Note Date Seen: May 02, 2024 Resident Creating Document: MARY WALLACE RESIDENT Has the PT tested + for MRSA If YES, has PT been informed?: No Medical Necessity Reason Pt with a Central, PICC or Fol: No Subjective Patient reports: No new complaints, Feels better Changes from previous H/P or p: No Changes Review of Systems: HEENT:Normal, CVS:Normal, RESPIRATORY:Normal, GI:Abnormal (Mild epigastric pain, now more localized to the left upper quadrant.), :Normal, MSK:Normal, NEURO:Normal Objective vital signs Vital Sign Date Time Temp Pulse Resp B/P (MAP) Pulse Ox O2 Delivery O2 Flow Rate FiO2 05/02/24 09:00 98.0 108 16 112/73 (86) 97 98.0 05/01/24 22:16 Room Air* 0 21 21 Total Intake and Output 05/01/24 05/01/24 05/02/24 15:00 23:00 07:00 Intake Total 280 ml 1078 ml 2000 ml Balance 280 ml 1078 ml 2000 ml medications Current Medications Medications Dose Ordered Sig/Gabo Route Start Time Stop Time Status Last Admin Dose Admin Sodium Chloride 1,000 ml @ 70 mls/hr [id number] IV 04/30/24 14:45 05/02/24 05:40 70 MLS/HR Acetaminophen/ Hydrocodone Bitart 1 tab Q4HP PRN PO 04/30/24 14:45 Ondansetron HCl 4 mg Q4HP PRN IV 04/30/24 14:45 05/01/24 11:14 4 MG Acetaminophen 650 mg Q6HP PRN PO 04/30/24 14:45 Morphine Sulfate 2 mg Q4HPRN PRN IV 04/30/24 14:45 Albuterol 2.5 mg Q4HPRN PRN NEB 04/30/24 15:15 Ipratropium [place] 0.5 mg Q4HPRN PRN NEB 04/30/24 15:15 Budesonide 0.5 mg BID NEB 04/30/24 22:00 05/01/24 06:24 0.5 MG Pantoprazole Sodium 40 mg BID@0600,1700 PO 05/01/24 17:00 05/02/24 06:04 40 MG Sucralfate 1 gm QID@0600,1130,1700,2200 GT 05/02/24 11:30 Examination: GENERAL:Normal, HEENT:Normal, NECK:Normal, LUNGS:Normal, CVS:Normal, ABDOMEN:Abnormal (Epigastric tenderness mild, BS positive, soft abdomen, no guarding), MSK:Normal, SKIN:Normal (No significant icterus noted), NEURO:Normal, :Normal laboratory and microbiology Laboratory Tests 05/02/24 04:47 Test 05/02/24 04:47 Range/Units Serum Glucose 61 L 74-106 mg/dL Labs and/or images reviewed: Labs reviewed by me, Image(s) reviewed by me Problem List/Assessment/Plan Problem List/Assessment/Plan Reasons for consultation: Epigastric, RUQ pain. 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 Symptoms improved with a bland diet. He was treated with Zofran at urgent care a week ago for yellow-colored emesis. He has no fever, chills, recent travel, or history of GERD, but is experiencing acid reflux. He drinks alcohol occasionally and has no history of hepatitis. He was treated with rifampin for a positive PPD test in early 2023. His past medical history includes asthma and insomnia, with no past surgeries. He does not smoke or use illegal drugs, and has mild LUQ tenderness on examination. H&H stable, mild elevation of ALT 42, alk-phos 127, lipase negative, CA 19-9 additional workup with RUQ U/S, abdomen pelvis CT, HIDA scan negative. GI Assessment: # acute abdominal pain # likely gastritis # possible GERD # ruled out gallbladder pathology with negative HIDA scan, RUQ ultrasound and CT abdomen # hyperbilirubinemia, total bilirubin 1.6> 2.0 - # history of asthma, controlled # history of insomnia controlled # seasonal allergy GI Plan: #Medications: PO pantoprazole 40 mg b.i.d., Carafate q.i.d. today, can consider switching to Carafate b.i.d. tomorrow. #Labs: Follow hepatitis panel, UDS, differential bilirubin. #Procedure: Pending EGD tomorrow, NPO overnight. Trend CMP daily for now. #Others: please avoid NSAIDs, alcohol, excessive hot or liquid fluids, high content of caffeine, spicy, highly acidic and caustic diets. #please scheduled follow up with GI as outpatient with Dr. Miller. Thank you so much for the opportunity to consult on your patient. GI team will follow the patient. In case of any questions or concerns please feel free to reach out. Case and action plan discussed with Dr. Che Miller. Complex care planning needed total 41 minutes of detailed discussion. The patient and caregiver team agreed to the plan. Plan discussed with: Patient, Other (Primary team. ) My Orders My Orders Orders - MARY WALLACE Procedure Category Date Status Time Drug Screen LAB 05/01/24 Logged 11:13 Sucralfate Susp PHA 05/02/24 In Process (Carafate Susp) 11:30 Obtain Consent For: ORDERS 05/02/24 Transmitted 08:54 Npo (Nothing By DIET 05/02/24 Transmitted Mouth) Diet Breakfast Obtain Consent For JAYLEN 05/02/24 In Process Anesthesia 08:54 Bilirubin, Direct LAB 05/02/24 Logged 09:10 MARY WALLACE May 02, 2024 10:22
[2024-05-02 10:50] LABS: Amphetamine Screen, Urine Neg (NEGATIVE); Barbiturate Scree,Urine Neg (NEGATIVE); Benzodiazephine Screen, Urine Neg (NEGATIVE); Cannabinoid Screen, Urine Neg (NEGATIVE); Cocaine Screen, Urine Neg (NEGATIVE); Opiate Scree,Urine Neg (NEGATIVE); Phencyclidine Screen, Urine Neg (NEGATIVE)
[2024-05-02] MEDS: SUCRALFATE 1 GM/10 ML ORAL SUSP GT SCH (11:30)
[2024-05-02 12:11] LABS: Hepatitis A Total Antibody Positive (Negative); Hepatitis B Surface Antibody Positive (Negative); Hepatitis B Surface Antigen Negative (Negative); Hepatitis C Antibody Negative (Negative)
[2024-05-02] MEDS: D5W/SOD CHLO 0.9% 1,000 ML IV SCH (16:25)
--- NOTE | 2024-05-02 16:46 | DVHPN2 ---
Subjective Patient continues to report having intermittent nausea and vomiting. Epigastric and left upper quadrant pain. Reviewed: Care Plan, H&P, Labs, Medications Changes from previous H/P or p: No Changes General: Per HPI Eyes: No Pain, No Vision change, No Conjunctivae inflammation, No Eyelid inflammation, No Other, No Redness ENT: No Ear pain, No Ear discharge, No Nose pain, No Nose discharge, No Nose congestion, No Mouth pain, No Mouth swelling, No Throat pain, No Throat swelling, No Other Cardiovascular: No Chest Pain, No Palpitations, No Orthopnea, No Paroxysmal Noc. Dyspnea, No Edema, No Lt Headedness, No Other Respiratory: No Cough, No Dry, No Shortness of breath, No SOB with excertion, No Wheezing, No Hemoptysis, No Pleuritic Pain, No Sputum, No Other Gastrointestinal: Nausea, Vomiting, Abdominal Pain; No Diarrhea, No Constipation, No Melena, No Hematochezia, No Other Genitourinary: No Dysuria, No Frequency, No Incontinence, No Hematuria, No Retention, No Other Musculoskeletal: No other, No neck pain, No shoulder pain, No arm pain, No back pain, No hand pain, No leg pain, No foot pain Skin: No Rash, No Lesions, No Jaundice, No Bruising, No Other Objective Vitals Vital Signs Date Time Temp Pulse Resp B/P (MAP) Pulse Ox O2 Delivery O2 Flow Rate FiO2 05/02/24 16:31 98.6 71 16 125/72 (89) 99 98.6 05/02/24 09:36 Room Air* 0 21 Intake/Output Intake and Output 05/02/24 07:00 Intake Total 3358 ml Balance 3358 ml Intake Oral 763 ml IV Total 2595 ml # Voids 6 General Appearance: Alert, Oriented X3, Cooperative HEENT: Atraumatic, PERRLA Cardiovascular: Normal S1, Normal S2 Abdomen: Normal bowel sounds, Soft, No tenderness Musculoskeletal: Normal sensory function, Normal motor function Neuro: Normal gait, Normal speech Psych/Mental Status: Mental status NL, Mood NL Medications Current Medications Medications Dose Ordered Sig/Gabo Route Start Time Stop Time Status Last Admin Dose Admin Acetaminophen/ Hydrocodone Bitart 1 tab Q4HP PRN PO 04/30/24 14:45 Ondansetron HCl 4 mg Q4HP PRN IV 04/30/24 14:45 05/01/24 11:14 4 MG Acetaminophen 650 mg Q6HP PRN PO 04/30/24 14:45 Morphine Sulfate 2 mg Q4HPRN PRN IV 04/30/24 14:45 Albuterol 2.5 mg Q4HPRN PRN NEB 04/30/24 15:15 Ipratropium [place] 0.5 mg Q4HPRN PRN NEB 04/30/24 15:15 Budesonide 0.5 mg BID NEB 04/30/24 22:00 05/02/24 09:36 0.5 MG Pantoprazole Sodium 40 mg BID@0600,1700 PO 05/01/24 17:00 05/02/24 06:04 40 MG Sucralfate 1 gm QID@0600,1130,1700,2200 GT 05/02/24 11:30 Dextrose/Sodium Chloride 1,000 ml @ 75 mls/hr [id number] IV 05/02/24 14:00 05/02/24 16:25 75 MLS/HR Trazodone HCl 50 mg HS PO 05/02/24 22:00 Laboratory Results Laboratory Tests 05/02/24 04:47 Chemistry Test 05/02/24 04:47 Albumin 4.3 g/dL (3.2-4.8) Calcium Level 10.5 mg/dL (8.7-10.4) H Total Protein 7.1 g/dL (5.7-8.2) LFT Test 05/02/24 04:47 Alanine Aminotransferase (ALT) 28 U/L (7-40) Alkaline Phosphatase 112 U/L (46-116) Aspartate Amino Transferase (AST) 15 U/L (13-40) Direct Bilirubin 0.6 mg/dL (<0.3) H Total Bilirubin 2.0 mg/dL (0.2-1.0) H Urinalysis Test 04/30/24 10:15 Urine Color Light-yellow (Yellow) Urine Clarity Clear (Clear) Urine pH 8.0 (5.0-9.0) Urine Specific [place] 1.035 (1.001-1.035) Urine Protein Negative (Negative) Urine Ketones Negative (Negative) Urine Blood Negative /uL (Negative) Urine Nitrite Negative (Negative) Urine Bilirubin Negative (Negative) Urine Urobilinogen Normal mg/dL (Negative) Urine Leukocyte Esterase Negative /uL (Negative) Urine RBC <1 /hpf (0 - 3) Urine WBC None seen /hpf (0 - 3) Urine Squamous Epithelial Cells Few /hpf (<5) Urine Bacteria None seen /hpf (None Seen) Urine Mucus Few (None Seen) Urine Glucose Normal mg/dL (Normal) Labs and/or images reviewed: Labs reviewed by me, Image(s) reviewed by me Assessment/Plan Assessment/Plan Impression: -abdominal pain -intractable nausea and vomiting -rule out acalculous cholecystitis -asthma Plan: -events: Patient was states that his pain is improving. -clear liquid diet -GI consultation -HIDA scan with CCK: No abnormal findings. -further course of care per GI recommendations: Plans for EGD in a.m. -MRCP Total time spent with patient discussing and formulating plan of care: 35 minutes. This medical document was created using an electronic medical record system with [employer] dictation system. Although this document has been carefully reviewed, there may still be some phonetic and typographical errors. These areas are purely typographical due to imperfections of the software programs, and do not reflect any compromise in the patient's medical care. Plan discussed with: Patient, Other My Orders Orders - RICARDO KAISER NP Procedure Category Date Status Time D5w/Sod Chlo 0.9% PHA 05/02/24 In Process (D5w Ns 0.9%) 14:00 Trazodone Hcl PHA 05/02/24 In Process (Desyrel) 22:00 Mrcp Mri MRI 05/02/24 Taken 15:07 Npo After Midnight DIET 05/02/24 Transmitted Dinner Date of Service: May 02, 2024 Billing Provider: RICARDO KAISER NP Common Visit Codes: [id number] INP/OBS CARE(HIGH) RICARDO KAISER NP May 02, 2024 16:46
[2024-05-02] MEDS: traZODone HCL 50 MG TAB PO SCH (21:12)
[2024-05-03] VITALS (7 sets, daily range): BP systolic 106–117; BP diastolic 65–79; PULSE 61–106; RESP 18–20; TEMP 97.8–98.6; O2SAT 97–100
--- NOTE | 2024-05-03 07:31 | DVH ---
MRI Abdomen, MRCP without IV Contrast Exam Date: 05/02/2024 03:21 PM Comparison: None History: Elevated Bili. Abdominal pain Technique: Multisequence multiplanar MRI images were obtained of the abomen. MRCP including 3D SPACE, Radial 3D slabs and SPACE 3D MIP images Findings: Liver: The liver is normal in size without focal lesions. Normal liver contour. Spleen: Unremarkable. Pancreas: The pancreas is normal in appearance without focal lesions. Gallbladder and ducts: Gallbladder is normal in appearance. The cystic duct, right and left hepatic ducts, common hepatic duct, and common bile ducts are unremarkable. The pancreatic duct is within normal limits. Adrenal glands: Unremarkable. Kidneys: Normal enhancement without suspicious lesions or hydronephrosis. Visualized bowel: Grossly unremarkable. Vasculature: Unremarkable. Lymphadenopathy: No evidence for lymphadenopathy. Ascites: Absent. Musculoskeletal: Bone marrow signal is normal. IMPRESSION: 1. Negative MRCP. No cholelithiasis. No evidence of biliary obstruction. HS:Martinez MACHUCA
[2024-05-03] MEDS ORDERED: MORPHINE SULFATE INJ 2 MG/ml SYRG IV PRN (09:30)
[2024-05-03] MEDS ORDERED: PROPOFOL 10 MG/ML 20 ML IV ONE (09:39)
[2024-05-03] MEDS ORDERED: fentaNYL CITRATE 100 MCG/2 ML VL ONE (09:40)
--- NOTE | 2024-05-03 10:29 | DVHOP2 ---
Operative Report DATE OF OPERATION: 05/03/24 PROCEDURE: Upper Endoscopy with biopsy. PREOPERATIVE INDICATION: The patient is a 24 -year-old male undergoing endoscopy for epigastric pain and left upper quadrant discomfort POSTOPERATIVE DIAGNOSES: 1. 2 cm sliding-type hiatal hernia with slightly irregular squamocolumnar junction minimal grade a erosive esophagitis 2. Mild gastritis otherwise normal examination up to the 2nd and 3rd part of the duodenum PROCEDURE PERFORMED BY: Татьяна Miller GI NURSE: Stephania SCOPE: Olympus videoendoscope. ASA CLASS: 2. PREOPERATIVE MEDICATIONS: Dr. Charis Herrera PROCEDURE IN DETAIL: After obtaining an informed consent, the patient was placed on left lateral decubitus position. The patient was then sedated with the above medications. A bite block was placed between his teeth. The endoscope was then passed through the oropharynx, into the esophagus, and through the stomach and pylorus up to the second and third part of the duodenum. The endoscope was then withdrawn. Second and 3rd part of the duodenum and the duodenal bulb were normal. Duodenal biopsies were obtained. The pre-pyloric area antrum and body showed mild gastritis with some hyperemia. Gastric biopsies were obtained. On retroflexion the fundus and cardia and angularis were normal. The endoscope was then withdrawn into the distal esophagus. Patient had a 2 cm sliding-type hiatal hernia with irregular squamocolumnar junction and grade a healing erosive esophagitis GE junction biopsies were obtained. The remaining distal and proximal esophagus and oropharynx were unremarkable The patient tolerated the procedure well without difficulty. COMPLICATIONS : None SPECIMENS: Duodenal biopsies Gastric biopsies GE junction biopsies DISPOSITION: Transfer back to the floor Stable PLAN: 1. Await for biopsy result 2. Will place pt on Protonix 40 mg bid 3. Carafate 1 g p.o. twice a day 4. Resume GI soft diet advance as tolerated 5. Lifestyle and dietary modifications for GERD, eat smaller meals and do not lie down after eating 6. Patient is stable for discharge from GI point of view, he can follow up in my office in 1-2 weeks for ongoing management of his GI issues ТАТЬЯНА MILLER MD May 03, 2024 10:29
--- NOTE | 2024-05-03 11:25 | DVHDS2 ---
Discharge Summary Date of Admission Apr 30, 2024 at 14:36 Date of Discharge: May 03, 2024 Admitting Diagnosis Abdominal pain Labs/Diagnostic Data: Laboratory Results Test 05/02/24 04:47 05/01/24 09:45 05/01/24 06:39 04/30/24 17:05 White Blood Count 6.6 10^3/uL (4.4-10.8) Red Blood Count 5.19 10^6/uL (4.5-5.90) Hemoglobin 16.0 g/dL (13.5-17.5) Hematocrit 47.4 % (41.0-53.0) Mean Corpuscular Volume 91.3 fL (80.0-100.0) Mean Corpuscular Hemoglobin 30.9 pg (28.0-32.0) Mean Corpuscular Hemoglobin Concent 33.8 g/dL (32.0-36.0) Red Cell Distribution Width 13.0 % (11.8-14.3) Platelet Count 277 10^3/uL (140-450) Mean Platelet Volume 8.9 fL (6.9-10.8) Neutrophils (%) (Auto) 52.6 % (37.0-80.0) Lymphocytes (%) (Auto) 34.9 % (10.0-50.0) Monocytes (%) (Auto) 9.5 % (0.0-12.0) Eosinophils (%) (Auto) 2.7 % (0.0-7.0) Basophils (%) (Auto) 0.3 % (0.0-2.0) Neutrophils # (Auto) 3.5 10 ^3/uL (1.6-8.6) Lymphocytes # (Auto) 2.3 10 ^3/uL (0.4-5.4) Monocytes # (Auto) 0.6 10 ^3/uL (0-1.3) Eosinophils # (Auto) 0.2 10 ^3/uL (0-0.8) Basophils # (Auto) 0 10 ^3/uL (0-0.2) Nucleated Red Blood Cells 0.0 % Sodium Level 141 mmol/L (136-145) Potassium Level 4.6 mmol/L (3.5-5.1) Chloride Level 105 mmol/L (98-107) Carbon Dioxide Level 28 mmol/L (20-31) Anion Gap 8 (5-15) Blood Urea Nitrogen 13 mg/dL (9-23) Creatinine 0.93 mg/dL (0.700-1.30) Glomerular Filtration Rate Calc 116 mL/min (>90) BUN/Creatinine Ratio 14.0 (10.0-20.0) Serum Glucose 61 mg/dL (74-106) Calcium Level 10.5 mg/dL (8.7-10.4) Total Bilirubin 2.0 mg/dL (0.2-1.0) Direct Bilirubin 0.6 mg/dL (<0.3) Aspartate Amino Transferase (AST) 15 U/L (13-40) Alanine Aminotransferase (ALT) 28 U/L (7-40) Alkaline Phosphatase 112 U/L (46-116) Total Protein 7.1 g/dL (5.7-8.2) Albumin 4.3 g/dL (3.2-4.8) Hepatitis A Antibody Total Positive (Negative) Hepatitis B Surface Antigen Negative (Negative) Hepatitis B Surface Antibody Positive (Negative) Hepatitis B Core Total Antibody Negative (Negative) Hepatitis C Antibody Negative (Negative) Urine Opiates Screen Neg (NEGATIVE) Urine Fentanyl Screen Neg (NEGATIVE) Urine Barbiturates Screen Neg (NEGATIVE) Urine Phencyclidine Screen Neg (NEGATIVE) Urine Amphetamines Screen Neg (NEGATIVE) Urine Benzodiazepines Screen Neg (NEGATIVE) Urine Cocaine Screen Neg (NEGATIVE) Urine Cannabinoids Screen Neg (NEGATIVE) CA 19-9 Antigen 4 U/mL (0-35) Plasma/Serum Blood Alcohol < 3.0 mg/dL (<10) Lipase 38 U/L (12-53) Test 04/30/24 10:15 Urine Color Light-yellow (Yellow) Urine Clarity Clear (Clear) Urine pH 8.0 (5.0-9.0) Urine Specific [place] 1.035 (1.001-1.035) Urine Protein Negative (Negative) Urine Ketones Negative (Negative) Urine Blood Negative /uL (Negative) Urine Nitrite Negative (Negative) Urine Bilirubin Negative (Negative) Urine Urobilinogen Normal mg/dL (Negative) Urine Leukocyte Esterase Negative /uL (Negative) Urine RBC <1 /hpf (0 - 3) Urine WBC None seen /hpf (0 - 3) Urine Squamous Epithelial Cells Few /hpf (<5) Urine Bacteria None seen /hpf (None Seen) Urine Mucus Few (None Seen) Urine Glucose Normal mg/dL (Normal) Other Laboratory Tests 05/02/24 04:47 Brief Hx & Hospital Course: History of Present Illness Justice Newman is a 24-year-old male with past medical history of asthma and insomnia who presents to the ED with abdominal pain, nausea, vomiting, in yellow stool x3 days. Patient states that the pain is worse when eating fatty foods not eating dishes such as rice or clear liquids. Patient denies any chest pain, shortness of breath, diarrhea, lightheadedness, fever, chills, dizziness, and headaches. Course of hospitalization: GI consultation was obtained. Patient was noted to have elevated bilirubin. Patient underwent MRCP after having gallbladder ultrasound as well as CT scan of the abdomen and pelvis. No abdominal normal findings were found. Patient u nderwent upper endoscopy with findings of esophagitis and gastritis. All testing was discussed with patient. At this time he was comfortable as am I to be discharged home with recommendations by Gastroenterology for PPI as well as Carafate x1 month. Patient will follow up with Gastroenterology in 2-3 weeks to go over any biopsy findings. He was instructed to follow up with his PCP in 1-2 weeks. All questions answered. Physical examination General: Alert and Oriented x3. No acute distress. Well-nourished. Eyes: EOMI. Anicteric. HENT: Moist mucous membranes. Lungs: Clear to auscultation bilaterally. No accessory muscle use. Cardiovascular: Regular rate and rhythm. No murmur. No JVD. Abdomen: Soft, non-tender and non-distended. No palpable masses. Extremities: No edema. Non-tender. Skin: No rashes or lesions. Warm. Neurologic: No focal neurological deficits. CN II-XII grossly intact, but not individually tested. Psychiatric: Cooperative. Appropriate mood and affect. Total time spent with patient discussing and formulating plan of care: 35 minutes. This medical document was created using an electronic medical record system with [employer] dictation system. Although this document has been carefully reviewed, there may still be some phonetic and typographical errors. These areas are purely typographical due to imperfections of the software programs, and do not reflect any compromise in the patient's medical care. Consults/Reason for consult Gastroenterology: Abdominal pain Operations or Procedures 05/03/2024: EGD Condition at Discharge: Fair Final Diagnosis/Problems List Gastritis, esophagitis Secondary Diagnosis: -intractable nausea and vomiting -ruled out acalculous cholecystitis -ruled out primary biliary disease -asthma Discharge Disposition: Home Discharge Instruct/Medications Diet: Regular Activity: No Restrictions, As Tolerated Follow Up/Referral: Follow up with PCP in 1-2 weeks Follow up with Dr. Benji Miller in 2-3 weeks to go over biopsy results Medications: Protonix 40 mg p.o. twice a day times 30 days Carafate 1 g p.o. twice a day times 30 days 36 Discharge Statement: "Patient was advised to return to the ER or call 911 if any headaches, dizziness, shortness of breath, chest pain, abdominal pain, bleeding, fevers, or worsening of medical condition. Patient was counseled about treatment plan, medications, possible side effects, patientverbalized understanding. All questions were answered to the best of my ability. This discharge took greater then 30 minutes in planning, reviewing documentation, counseling the patient, and discussing with other team members." ASSESSMENT ASSESSMENT Assessment Gastritis, esophagitis Date of Service: May 03, 2024 Billing Provider: RICARDO KAISER NP Common Visit Codes: 20478-VVR/OBS DISCH DAY >30min RICARDO KAISER NP May 03, 2024 11:24
[2024-05-03] MEDS: SUCRALFATE 1 GM/10 ML ORAL SUSP PO SCH (11:34)
[2024-05-03] MEDS ORDERED: SUCR1TAB31 OR (11:43)
[2024-05-03] MEDS ORDERED: PANT40TA2 PO (11:43)
== END 2024-05-03 13:15 | disposition home or self-care (01) | DRG 382 ==
LOC: EEVIPCON 07:22 → ER 07:22 → OVERFLOW 14:36 → WEST WING 20:56
PROVIDERS: ADMIT Nurse Practitioner Acute Care; ATTEND Nurse Practitioner Acute Care
PROC: 0DB68ZX Excision of Stomach, Via Natural or Artificial Opening Endoscopic, Diagnostic (ICD-10-PCS; 2024-05-03)
PROC: 0DB48ZX Excision of Esophagogastric Junction, Via Natural or Artificial Opening Endoscopic, Diagnostic (ICD-10-PCS; 2024-05-03)
PROC: 0DB98ZX Excision of Duodenum, Via Natural or Artificial Opening Endoscopic, Diagnostic (ICD-10-PCS; principal; 2024-05-03 10:02)
DX: K22.11 Ulcer of esophagus with bleeding (principal); K29.71 Gastritis, unspecified, with bleeding; J45.909 Unspecified asthma, uncomplicated; G47.00 Insomnia, unspecified; K44.9 Diaphragmatic hernia without obstruction or gangrene; Z83.3 Family history of diabetes mellitus
CPT/HCPCS: 36415; 74177; 74181; 76705; 78226; 80053; 80307; 80320; 81001; 82248; 83690; 85025; 86301; 86704; 86706; 86708; 86803; 87045; 87340; 87427; 94640; G0378; J2405; J2470; J2704; J7042

== ENCOUNTER → 2024-05-13 | Outpatient (CLI) | payer BC ==
[~2024-05-13] MED LIST: MONT-8 PO; PANT40TA2 PO; SUCR1TAB31 OR; TRAZ-227 PO
[2024-05-13 08:27] LABS: Urine Bacteria None Seen /hpf (None Seen)
[2024-05-13 08:35] LABS: Basophils # (auto) 0 10 ^3/uL (0-0.2); Basophils % (auto) 0.3 % (0.0-2.0); Eosinophils # (auto) 0.1 10 ^3/uL (0-0.8); Eosinophils % (auto) 2.2 % (0.0-7.0); Hematocrit 46.6 % (41.0-53.0); Hemoglobin 15.7 g/dL (13.5-17.5); Lymphocytes # (auto) 1.5 10 ^3/uL (0.4-5.4); Lymphocytes % (auto) 23.4 % (10.0-50.0); Mean Corpuscular Hemoglobin 30.3 pg (28.0-32.0); Mean Corpuscular Hgb Conc. 33.6 g/dL (32.0-36.0); Mean Corpuscular Volume 90.1 fL (80.0-100.0); Monocytes # (auto) 0.5 10 ^3/uL (0-1.3); Monocytes % (auto) 7.6 % (0.0-12.0); Neutrophils # (auto) 4.3 10 ^3/uL (1.6-8.6); Neutrophils % (auto) 66.5 % (37.0-80.0); Platelet Count (auto) 287 10^3/uL (140-450); Red Blood Cells 5.18 10^6/uL (4.5-5.90); Red Cell Distribution Width 13.1 % (11.8-14.3); Urine Blood Negative /uL (Negative); Urine Clarity Clear (Clear); Urine Color Light-Yellow (Yellow); Urine Protein, UAD Negative (Negative); Urine Specific Gravity 1.022 (1.001-1.035); Urine Squamous Epithelial Cell None Seen /hpf (<5); Urine Urobilinogen Normal (Negative); Urine WBC 1 /HPF (0-3); Urine pH 7.5 (5.0-9.0); White Blood Cell 6.5 10^3/uL (4.4-10.8)
[2024-05-13 09:54] LABS: Alanine Aminotransferase 27 U/L (7-40); Albumin 4.7 g/dL (3.2-4.8); Alkaline Phosphatase 111 U/L (46-116); Anion Gap 6 (5-15); Aspartate Aminotransferase 15 U/L (13-40); Blood Urea Nitrogen 16 mg/dL (9-23); Calcium 10.3 mg/dL (8.7-10.4); Carbon Dioxide 29 mmol/L (20-31); Chloride 104 mmol/L (98-107); Cholesterol 146 mg/dL (< 200); Glucose 87 mg/dL (74-106); HDL Cholesterol 44 mg/dL (40-59); LDL Cholesterol 97 mg/dL (< 100); Potassium 4.1 mmol/L (3.5-5.1); Sodium 139 mmol/L (136-145); Triglycerides 45 mg/dL (< 150)
[2024-05-13 09:55] LABS: Total Protein 7.5 g/dL (5.7-8.2)
[2024-05-13 10:41] LABS: Hepatitis B Core Total AB Negative (Negative)
[2024-05-13 12:27] LABS: Hepatitis A Total Antibody Positive (Negative); Hepatitis B Surface Antibody Positive (Negative); Hepatitis B Surface Antigen Negative (Negative); Hepatitis C Antibody Negative (Negative)
[2024-05-14 07:06] LABS: RPR Non Reactive (Non Reactive)
== END | disposition home or self-care (01) ==
LOC: LAB 08:10
PROVIDERS: ATTEND Nurse Practitioner Family
DX: Z00.01 Encounter for general adult medical examination with abnormal findings (principal); Z11.3 Encounter for screening for infections with a predominantly sexual mode of transmission; E55.9 Vitamin D deficiency, unspecified; R17 Unspecified jaundice
CPT/HCPCS: 36415; 80053; 80061; 81001; 82306; 82607; 83036; 84443; 85025; 86592; 86703; 86704; 86706; 86708; 86803; 87340